=== PATIENT | female | born 1955 | race Caucasian/White ===

== ENCOUNTER 2019-06-21 10:28 | Inpatient (IN) | payer OTHER ==
[~2019-06-21] VITALS: Ht 152.4 cm; Wt 110.7 kg
[2019-06-21 10:28] VITALS: BP 175/91
[2019-06-21 11:13] LABS: HEMATOCRIT 34.8 % (37.0-47.0); HEMOGLOBIN 10.3 gm/dL (12.0-15.0); MCH 17.7 pg (26.0-34.0); MCHC 29.6 g/dL (28.0-37.0); MCV 59.8 fL (80.0-100.0); PLATELET COUNT 511 thou/uL (150-400); RBC 5.82 mil/uL (4.20-5.00); RDW 18.8 % (10.5-14.5); WBC 13.2 thou/uL (4.0-11.0)
[2019-06-21 11:22] LABS: CALCIUM 9.4 mg/dL (8.5-10.1); CREATININE 1.1 mg/dL (0.6-1.0); POTASSIUM 3.1 mmol/L (3.5-5.1)
[2019-06-21 11:28] LABS: TOTAL BILIRUBIN 0.7 mg/dL (<0.1-1.0); TOTAL PROTEIN 7.1 g/dL (6.4-8.2)
[2019-06-21 11:48] LABS: ABSOLUTE NEUTROPHILS 11.2 thou/uL (1.4-8.2); ANISOCYTOSIS 2+; OVALOCYTES OCCASIONAL
[2019-06-21 11:49] LABS: BURR CELLS OCCASIONAL; HYPOCHROMASIA 3+; MICROCYTES 3+; PLATELET ESTIMATE INCREASED; TARGET CELLS OCCASIONAL
[2019-06-21 12:08] LABS: URINE BLOOD NEGATIVE (Negative); URINE CLARITY CLEAR; URINE COLOR YELLOW; URINE GLUCOSE-RANDOM* NEGATIVE (Negative); URINE KETONES TRACE (Negative); URINE NITRITE-REFLEX NEGATIVE (Negative); URINE PROTEIN (DIPSTICK) NEGATIVE (Negative)
[2019-06-21 12:12] LABS: URINE LEUKOCYTES-REFLEX 2+ (Negative)
[2019-06-21 12:13] LABS: ICTOTEST (BILI CONFIRMATORY) Negative (Negative); URINE BILIRUBIN NEGATIVE (Negative)
[2019-06-21 12:25] LABS: CASTS None Seen /LPF (None Seen); CRYSTALS None Seen /LPF (None Seen); SQUAMOUS >10 Many /LPF (0-3); URINE RBC 0-2 Rare /HPF (0-2); URINE WBC-REFLEX 6-15 Few /HPF (0-5)
[2019-06-21 12:50] VITALS: BP 180/90
[2019-06-21 14:03] VITALS: BP 174/101
[2019-06-21 16:13] VITALS: BP 158/88
[2019-06-21 19:05] VITALS: BP 177/95
--- NOTE | 2019-06-21 19:23 | NUR ---
PATIENT ARRIVED ON UNIT AT APPROX 1323 CAME FROM ER,ACCOMPANIED BY BROTHER AND SISTER IN LAW . ADMISSION PAPERWORK COMPLETED IN COMPUTER IV FLUIDS INFUSING. PT GIVEN IV ZOFRAN FOR UPSET STOMACH. PT IS NPO. NO OPEN AREAS /SKIN. PT IS COOPERATIVE WITH CARE.
--- NOTE | 2019-06-22 02:28 | NUR ---
ASSUMED CARE OF PT @1900 PT ASSESSED AT START OF SHIFT A&OX4. PAPERWORK AND CONSENT FOR TX SIGNED. IV INTACT AND FLUIDS INFUSING. PT NPO. UP WITH SBA TO THE BATHROOM. MORPHINE GIVEN FOR PAIN IN LOWER ABD OF 8 PARTIAL RELIEF AFTERWARDS. CALL LIGHT WITHIN REACH WILL CALL CONSULTS IN THE MORNING AND CONT TO DAVID PT TILL EOS.
[2019-06-22 04:44] VITALS: BP 175/99
[2019-06-22 07:33] VITALS: BP 160/80
--- NOTE | 2019-06-22 12:10 | NUR ---
INITIAL ASSESSMENT: Pt evaluated for d/c planning needs. Reviewed chart and spoke with nurse, pt and pt's brother. Pt is alert and oriented. Pt lives in house with her parents and is caregiver. Pt uses no DME and has not had home health. 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 Pt does not have insurance. Referral made to [employer]. Encouraged pt to work with [employer] for Medicaid application and disability. Pt plans on returning home on d/c from hospital. Will remain available to assist as needed.
[2019-06-22 12:21] LABS: HEMOGLOBIN 8.8 gm/dL (12.0-15.0); OBSERVED RETIC COUNT 1.93 % (0.6-2.6)
[2019-06-22 12:24] LABS: HEMATOCRIT 29.7 % (37.0-47.0); MCH 18.2 pg (26.0-34.0); MCHC 29.7 g/dL (28.0-37.0); MCV 61.4 fL (80.0-100.0); RBC 4.85 mil/uL (4.20-5.00); RDW 18.7 % (10.5-14.5); WBC 10.4 thou/uL (4.0-11.0)
[2019-06-22 12:27] LABS: PLATELET COUNT 351 thou/uL (150-400)
[2019-06-22 12:36] LABS: % SATURATION 5 % (20-39); IRON 11 ug/dL (50-170); TIBC 240 ug/dL (250-450)
[2019-06-22 12:44] LABS: ALBUMIN 2.4 g/dL (3.4-5.0); CALCIUM 8.2 mg/dL (8.5-10.1); CREATININE 0.7 mg/dL (0.6-1.0); POTASSIUM 3.3 mmol/L (3.5-5.1); TOTAL BILIRUBIN 0.5 mg/dL (<0.1-1.0); TOTAL PROTEIN 5.9 g/dL (6.4-8.2)
[2019-06-22 13:00] LABS: ABSOLUTE NEUTROPHILS 8.3 thou/uL (1.4-8.2); PLATELET ESTIMATE NORMAL
[2019-06-22 13:01] LABS: ANISOCYTOSIS 2+; HYPOCHROMASIA 2+; MICROCYTES 2+
[2019-06-22 13:03] LABS: FERRITIN 52 ng/mL (8-252)
--- NOTE | 2019-06-22 15:09 | NUR ---
ASSUMED CARE PT SHIFT CHANGE. ASSESSMENT CHARTED. MEDS GIVEN PER AUG. PT ALERT AND ORIENTED, VSS, O2 SATS WNL ON ROOM AIR. PAIN MANAGED PER IV MEDS. GI, SURGERY CONSULT THIS SHIFT--SEE NOTES. PT TO HAVE COLONOSCOPY TOMORROW, BOWEL PREP ORDERED FOR TODAY. PT UNDERSTANDING OF PROCESS. NO BM THIS SHIFT OF NOW, BS HYPERACTIVE. DENYING OF NEEDS/CONCERNS AT THIS TIME. REPORT HANDED OFF TO NURSE VALE AT APPROX 1430.
--- NOTE | 2019-06-22 15:15 | NUR ---
REC REPORT FROM DEPARTING LOGAN STILES, NO NEEDS AT THIS TIME, IN MIDST OF BOWEL PREP. OFFERED FAMILY SNACKS. WILL CONTINUE TO MONITOR
[2019-06-22 15:45] VITALS: BP 171/74
--- NOTE | 2019-06-22 15:54 | NUR ---
HIGH B/P'S CALLED PHYSICIAN SEE ORDERS PT ASYMPTOMATIC AND IN MIDST OF BOWEL PREP
--- NOTE | 2019-06-22 16:14 | NUR ---
PHYSICIAN WAS IN THE ROOM AND LET PT KNOW IF SHE BECAME NAUSEAS SHE COULD WAIT FOUR HOURS TO RESUME
[2019-06-22 19:08] VITALS: BP 154/92
--- NOTE | 2019-06-23 02:50 | NUR ---
ASSUMED CARE OF PT @1900 PT ASSESSED AT START OF SHIFT A&OX4. ENCOURAGED PT TO START DRINKING GOLYTELY FOR BOWEL PREP. PREP STARTED AT THIS SHIFT. PT DRANK ABOUT 1500CC ENCOURAGED PT TO DRINK MORE IN ORDER FOR BOWELS TO BE CLEAR IN THE MORNING FOR COLOSCOPY. @2300 PT STATED NOT ABLE TO DRINK ANYMORE FEELS TIGHT IN THE ABD. TOLD PT TO REST AND CONT AGAIN. PT CO OF FEELING NAUSIOUS ZOFRAN GIVEN BROWN COLORED EMESIS NOTED. PT STATES SHES NOT ABLE TO KEEP DRINKING ANYMORE. EDUCATED PT ABOUT THE PROCESS AND WILL INFORM PROVIDER. PAIN MEDS GIVEN FOR ABD PAIN. FLUIDS INFUSING AND CALL LIGHT WITHIN REACH WILL CONT WITH POC TILL EOS.
[2019-06-23 03:49] VITALS: BP 151/71
[2019-06-23 08:02] VITALS: BP 183/71
--- NOTE | 2019-06-23 15:59 | NUR ---
PT CARE ASSUMED AT 0700. A&Ox4. PT WENT FOR COLONOSCOPY THIS AM. WAS NPO UNTIL THEN. NG TUBE PACED ON LOW SUCTIONING. PT CAN HAVE FLUIDS. ATTEMPTED TAP WATER ENEMA WITH NO RESULTS. PT IS ON A FULL LIQUIDS DIET. IF OVER 160 BP HYDRALAZINE CAN BE GIVEN PRN. VITALS ARE STABLE. PT IS UP AT LUIZ. DC'D LEFT AC IT WAS INFILTRATED. POSSIBLE SENIOR SWEETS TRANSFER TODAY. BED IN LOW POSITION, LOCKED, WITH BED ALARM ON. CALL LIGHT IN REACH. NS WITH POTASSIUM RUNNING AT 80ML/HR
[2019-06-23 16:05] VITALS: BP 183/71
[2019-06-23 18:55] LABS: HEMATOCRIT 29.6 % (37.0-47.0); HEMOGLOBIN 8.9 gm/dL (12.0-15.0); MCH 18.1 pg (26.0-34.0); MCV 60.4 fL (80.0-100.0); RBC 4.89 mil/uL (4.20-5.00)
[2019-06-23 19:07] VITALS: BP 156/74
[2019-06-23 19:09] LABS: CALCIUM 8.2 mg/dL (8.5-10.1); CREATININE 0.8 mg/dL (0.6-1.0); MAGNESIUM 2.1 mg/dL (1.8-2.4); PHOSPHORUS 2.6 mg/dL (2.5-4.9); POTASSIUM 4.1 mmol/L (3.5-5.1)
--- NOTE | 2019-06-24 02:16 | NUR ---
PT IS ALERT AND ORIENTED X4.PT CARE ASSUMED WITH PT IN CHAIR.PT CHOOSE TO SPEND THE NIGHT IN HIS CHAIR.PT IS UP AD LUIZ AND USED BSC.PT IS PN CONTINUOUS NG TUBE SUCTION LOW PRESSURE.PT IS NPO AND TO HAVE SURGERY ON SATURDAY.WILL CONTINUE TO MONITOR POC
[2019-06-24 08:15] VITALS: BP 150/71
[2019-06-24 17:24] VITALS: BP 181/88
--- NOTE | 2019-06-24 19:43 | NUR ---
PT UP IN BEDSIDE CHAIR WAS GIVEN PRN PAIN MED EARLIER THAT WAS EFFECTIVE NO PAIN AT THE PRESENT. HAS NG THAT IS ATTACHED TO SUCTION. HAD 400 CC ON THIS SHIFT. PT HAS HAD FAMILY VISITING ALL DAY. PT REMAINS NPO. CONT ON IV ABT'S.
[2019-06-24 20:30] VITALS: BP 157/74
[2019-06-25 04:40] VITALS: BP 153/73
[2019-06-25 05:59] LABS: HEMATOCRIT 30.8 % (37.0-47.0); HEMOGLOBIN 9.1 gm/dL (12.0-15.0); MCH 18.1 pg (26.0-34.0); MCHC 29.7 g/dL (28.0-37.0); MCV 60.9 fL (80.0-100.0); RBC 5.06 mil/uL (4.20-5.00); WBC 10.3 thou/uL (4.0-11.0)
--- NOTE | 2019-06-25 06:16 | NUR ---
ASSESSMENT COMPLETED. PT IS VERY QUIET. SLEPT IN CHAIR. ONLY ASKED FOR MORPHINE ONCE THIS SHIFT. NG IN PLACE TO LIS, GREENISH OUTPUT NOTED. AFEBRILE. WALKS WITH SBA TO THE BATHROOM.VOIDING OK. NPO.CALLS APPROPRIATELY. WILL CONTINUE WITH POC TILL EOS.
[2019-06-25 06:17] LABS: CREATININE 0.8 mg/dL (0.6-1.0); MAGNESIUM 1.8 mg/dL (1.8-2.4); POTASSIUM 3.9 mmol/L (3.5-5.1)
[2019-06-25 08:12] VITALS: BP 154/71
--- NOTE | 2019-06-25 10:05 | HC ---
[facility] [place] [address] CONSULTATION Name: GE HARRELL Room #: 444-P ADM IN M.R.#: [id number] Admission: 06/21/19 Attend Phys: Licha Brooke MD Discharge: Date of : 57 Report #: [id number] THIS REPORT FOR: //name// CC: [facility] physician/PCP Licha Brooke DATE OF SERVICE: 06/21/2019 GENERAL SURGERY CONSULTATION REPORT REFERRING PROVIDER: Licha Brooke MD REASON FOR CONSULT: Abdominal pain. HISTORY OF PRESENT ILLNESS: The patient is a 64-year-old female who presented with nausea and vomiting since Thanksgiving and inability to have a bowel movement for the past week. The patient does not see a physician and has not done so for 15 years due to not having insurance, but when her symptoms became so severe she decided to present to the Emergency Room for evaluation. Her workup showed a lactic acidosis with a significant small-bowel obstruction and a colonic mass that is quite large and is concerning for metastatic colon cancer with a subsequent small-bowel obstruction. As such, I am asked to evaluate from a surgical standpoint. PAST MEDICAL HISTORY: None. HOME MEDICATIONS: No known home medications. ALLERGIES: No known drug allergies. FAMILY HISTORY: Reviewed and noncontributory. SOCIAL HISTORY: The patient does not utilize tobacco, alcohol or illicit drugs. REVIEW OF SYSTEMS: GENERAL: The patient denies nocturnal fevers or chills. HEENT: No change in vision, change in hearing. NECK: No swelling or difficulty swallowing. HEART: No chest pain or palpitations. LUNGS: No cough or shortness of breath. ABDOMEN: Abdominal pain, nausea and inability to have a bowel movement. GENITOURINARY: No dysuria or hematuria. ENDOCRINE: No polyuria or polydipsia. HEMATOLOGIC: No history of bleeding or easy bruising. EXTREMITIES: No history of weakness or limited range of motion. NEUROLOGIC: No history of syncope or near syncopal episodes. [facility] [address] [place] [address] CONSULTATION Name: GE HARRELL Room #: 444-[facility] IN [facility].#: [id number] Admission: 06/21/19 Attend Phys: Licha Brooke MD Discharge: Date of : 57 Report #: [id number] SKIN AND INTEGUMENT: No history of abnormal lesions or moles. PSYCHIATRIC: No history of anxiety or depression. She does complain of significant weight loss that was unintentional, but no nocturnal fevers or other constitutional symptoms. PHYSICAL EXAMINATION: VITAL SIGNS: Temperature 36.8, pulse 94, respirations 20, blood pressure 180/90. GENERAL: Alert, in no acute distress. HEENT: Normocephalic, atraumatic. Pupils are equal, round, reactive to light. NECK: Supple without lymphadenopathy. Trachea midline. HEART: Regular rate and rhythm. LUNGS: Clear to auscultation bilaterally. ABDOMEN: Soft, distended. She complains of pain, but is not tender to palpation. GENITOURINARY: Normal external female genitalia. EXTREMITIES: No clubbing, cyanosis or edema. NEUROLOGIC: Cranial nerves 2-12 are grossly intact. PSYCHIATRIC: Normal mood and affect. SKIN AND INTEGUMENT: No abnormal lesions or moles. LABORATORY AND X-RAY DATA: CBC shows white blood cell count of 13.2, hemoglobin 10.3, platelets 511. Creatinine 1.1. Lactic acid 4.2. LFTs are normal. Lipase is normal. CT scan of the abdomen and pelvis shows a cecal mass measuring 3.5 cm with pericolonic metastasis and hepatic metastasis as well as a resultant small-bowel obstruction. ASSESSMENT AND PLAN: A 64-year-old female with what appears to be likely a cecal cancer that has metastasized regionally as well as to the liver and has likely entrapped a loop of small bowel nearby. This is causing a small-bowel obstruction. As such, she will have nasogastric tube placed for decompression. Continue with n.p.o. status, intravenous fluid rehydration as I suspect her lactic acidosis is secondary to volume contraction. We will have Oncology as well as Gastroenterology evaluate as she has never undergone a colonoscopy and ultimately she would necessitate some form of operative intervention be it laparoscopic versus open partial colectomy with release of small-bowel obstruction. There is a small chance she would necessitate placement of an ostomy and a Cindy's type procedure depending upon the degree of disease found intraoperatively; however, this will be reserved for intraoperative decision making after thorough consultation with the patient preoperatively. At this time, continue conservative measures as well as Gastroenterology and Oncology evaluate the patient, we will proceed operatively when appropriate. [address] [address] CONSULTATION Name: GE HARRELL Room #: 444-P ADM IN M.R.#: [id number] Admission: 06/21/19 Attend Phys: Licha Brooke MD Discharge: Date of : 57 Report #: [id number] I sincerely appreciate this consult and will follow along and leave any further recommendations in the patient's chart as appropriate. <ELECTRONICALLY SIGNED> By: Lucrecia Weir MD, FACS 06/25/19 1005 [id number] Lucrecia Weir MD, FACS /nt
[2019-06-25 10:44] VITALS: BP 154/71
--- NOTE | 2019-06-25 12:20 | NUR ---
PT CARE ASSUMED AT 0700. A&Ox4. PT IS SITTING AND SLEEPING IN RECLINER BECAUSE IT IS MORE COMFORTABLE TO HER WITH THE NG TUBE IN. NG TUBE IS ON LOW INTERMIDEATE SUCTION. I EMPTIED 600CC WHEN CHANGING OUT THE CONTAINER ON THE WALL. PT HAS RECEIVED MORPHINE FOR GENERALIZED ABDOMINAL PAIN. PT. HAS HYDRALAZINE ON BOARD IF BP OVER 160. PT. IS SCHEDULED FOR A BOWEL RESECTION TOMORROW 06/26 APPROX 10AM. PT RECEIVED 64 OZ OF BOWEL PREP WITH NO RESULTS. FLUIDS INFUSING AT 80ML/HR IV PATENT, WITH NO REDNESS OR SWELLING. Q2H TURNS. PT TURNS HERSELF. BED IS IN LOW POSITION, LOCKED WITH BED ALARM ON. CALL LIGHT IN REACH.
[2019-06-25 16:48] VITALS: BP 155/78
[2019-06-25 19:07] VITALS: BP 154/82
[2019-06-25 23:06] LABS: GLYCOHEMOGLOBIN (HGB A1C) 7.3 % (4.8-5.6)
--- NOTE | 2019-06-26 03:16 | NUR ---
ASSUMED CARE OF PT AT 1900HRS. PT AOX4 AND LETS NEEDS BE KNOWN. FALL PRECAUTION IN PLCE DUE TO MUTIPLE LINES. NG IN LEFT NARE AT 72", AND CONNECTED TO LOW INTERMITTENT SUCTION. PT DENIED NAUSEA. PT REPORTED SOME PAIN AND WAS TREATED WITH PRN PAIN MEDS. PT PLACED NPO AT OR FOR SURGERY. PT WAS ABLE TO GET COMFORTABLE AND SLEEP PART OF THE SHIFT. VSS AND NO S/S OF ACUTE SISTRESS. WILL CONTINUE TO MONITOR.
[2019-06-26 04:04] VITALS: BP 151/68
[2019-06-26 07:25] VITALS: BP 170/79
--- NOTE | 2019-06-26 07:57 | NUR ---
RD RECOMMENDATIONS: Today starts day 4 without nutrition (NPO since 06/23) and minimal-no nutrition since 06/21 admit. If continued bowel rest indicated for several more days s/p bowel surgery today, recommend initiation of TPN to help meet nutrition needs. 1) If TPN indicated by providers, recommend: D15, AA5, w/ 2.9% lipids at starting rate of 30-40 ml/hr on day 1. 2) Slowly advance to Goal Rate of 70 ml/hr over 24-48 hrs. Recommend TPN be continued for duration of at least 5-7+ days to have beneficial effect. 3) Recommend K+, Phos, Mag be WNL prior to TPN start and monitor closely in the first 3 days for any signs of refeeding. Check TRIG weekly, hold if >400.
[2019-06-26 08:18] LABS: HEMATOCRIT 32.5 % (37.0-47.0); HEMOGLOBIN 9.7 gm/dL (12.0-15.0); MCHC 29.7 g/dL (28.0-37.0); MCV 60.6 fL (80.0-100.0); PLATELET COUNT 314 thou/uL (150-400); RBC 5.35 mil/uL (4.20-5.00); RDW 19.3 % (10.5-14.5); WBC 11.5 thou/uL (4.0-11.0)
[2019-06-26 08:46] LABS: ALBUMIN 2.5 g/dL (3.4-5.0); CALCIUM 8.7 mg/dL (8.5-10.1); CREATININE 0.7 mg/dL (0.6-1.0); MAGNESIUM 2.1 mg/dL (1.8-2.4); PHOSPHORUS 3.2 mg/dL (2.5-4.9); POTASSIUM 4.1 mmol/L (3.5-5.1); TOTAL BILIRUBIN 0.5 mg/dL (<0.1-1.0); TOTAL PROTEIN 6.2 g/dL (6.4-8.2)
[2019-06-26 09:02] LABS: INR 2.3; PROTIME 23.8 Seconds (9.3-11.4)
[2019-06-26 13:40] LABS: ABSOLUTE NEUTROPHILS 9.3 thou/uL (1.4-8.2); ATYPICAL LYMPHS 1 %
[2019-06-26 13:42] LABS: ANISOCYTOSIS 2+; HYPOCHROMASIA 2+; MICROCYTES 3+
[2019-06-26 13:43] LABS: OVALOCYTES FEW
--- NOTE | 2019-06-26 18:30 | NUR ---
PT ASSESSED AT START OF SHIFT. UP IN THE RECLINER UNTIL SURGERY AND RETURNED ALERT AND IN NO ACUTE DISTRESS. ILLEOSTOMY PASSING FLATUS AND LOTS OF LIQUID STOOL BUT OSTOMY BAG LEAKING SO UNABLE TO MEASURE. NEW BAG PLACED AND WORKING WELL. PRETTY DRAINING CLEAR,YELLOW URINE. IV FLUIDS INFUSING. PT TAKING SIPS SPARINGLY PER ORDERS. MORPHINE FOR PAIN.
[2019-06-26 21:00] VITALS: BP 152/60
[2019-06-26 23:25] VITALS: BP 157/59
[2019-06-27 03:05] VITALS: BP 165/68
--- NOTE | 2019-06-27 04:15 | NUR ---
ASSUMED PT CARE AT 1900. PT COMPLAINING OF SEVERE PAIN, CALLING FOR SOMETHING EVERY 2 HOURS. MORPHINE AND FENTAYL BEING GIVEN. ATTACHED TO CONT. PULSE OX. ILEOSTOMY INTACT WITH GOOD OUTPUT. CATHETER PATENT. FLUIDS INFUSING PER ORDER. PT HAS A VERY FLAT AFFECT AND IS PALE. DR WANTED H&H DONE LAST NIGHT, LAB HAD A DIFFICULT TIME GETTING BLOOD. BEING DRAWN CURRENTLY. WILL NOTIFY SECONDARY ENGLISH TEACHER OF RESULTS SOON THEY COME THROUGH.
[2019-06-27 04:37] LABS: HEMATOCRIT 30.7 % (37.0-47.0); MCH 17.9 pg (26.0-34.0); MCHC 29.5 g/dL (28.0-37.0); MCV 60.7 fL (80.0-100.0); RBC 5.05 mil/uL (4.20-5.00); RDW 19.1 % (10.5-14.5); WBC 12.3 thou/uL (4.0-11.0)
[2019-06-27 04:57] LABS: INR 1.4; PROTIME 13.9 Seconds (9.3-11.4)
[2019-06-27 05:10] LABS: CALCIUM 8.2 mg/dL (8.5-10.1); CREATININE 0.7 mg/dL (0.6-1.0); POTASSIUM 4.7 mmol/L (3.5-5.1)
[2019-06-27 07:45] VITALS: BP 175/66
--- NOTE | 2019-06-27 14:07 | NUR ---
PT CARE ASSUMED AT 0700. A&OX4. PT IS SITTING IN RECLINER AND HAS DECLINED WALKING THE HALLWAYS. PT SPOKE TO ME ABOUT WANTING TO HAVE HOSPICE INVOLVED BUT DOES NOT WANT TO GET THINGS ORGANIZED JUST YET. PT STATES"SHE ISNT READY YET FOR THAT TO HAPPEN". PT FLUIDS INFUSING. ANTIBIOTICS GIVEN. PT STATES THAT HER PAIN IS UNCONTROLLED WITH THE MEDICATIONS THAT SHE IS GIVEN. I SPOKE TO HOSPITALIST AND HE INCREASED HER FENTANYL. PT STATES THAT THIS IS WORKING FOR HER. BOTH IVS ARE PATENT WITH NO REDNESS OR EDEMA. LEFT HAND IS SALINE LOCKED. RIGHT HAND HAS FLUIDS INFUSING. PT CAN TAKE ORAL MEDS WITH SMALL SIPS OF WATER.
[2019-06-27 16:57] VITALS: BP 171/64
[2019-06-27 18:22] VITALS: BP 171/64
[2019-06-27 19:30] VITALS: BP 159/55
--- NOTE | 2019-06-28 03:22 | NUR ---
PT CARE ASSUMED AT 1900 WITH PT IN [facility].PT HAS ILEOSTOMY AND PRETTY CATHETER.PT IS UP WITH ASSIST.PT PAIN MGT DURING SHIFT WITH MORPHINE AND NORCO.PT IS NPO WITH FLIUD SIP/MEDICATIONS.PT IS ACHS ACCUCHECKS WITH NO INSULIN.CONTINUE TO MONITOR POC
[2019-06-28 05:40] LABS: ALBUMIN 2.2 g/dL (3.4-5.0); CALCIUM 8.1 mg/dL (8.5-10.1); CREATININE 0.7 mg/dL (0.6-1.0); MAGNESIUM 1.7 mg/dL (1.8-2.4); POTASSIUM 4.1 mmol/L (3.5-5.1); TOTAL BILIRUBIN 0.5 mg/dL (<0.1-1.0)
[2019-06-28 07:58] VITALS: BP 187/60
--- NOTE | 2019-06-28 14:19 | NUR ---
ASSUMED CARE OF THE PT AT 0700. PT IS UP IN CHAIR WITH CHAIR ALARM ON. PER NOTES PRETTY IS TO BE REMOVED. PT IS TOLERATING PAIN WITH PAIN MEDICATION, SEE EMAR. PTS DIET IS NOW LIQUID AND IS ADVANCE TOLERATED. IVS ARE DRY AND INTACT. FALL PRECAUTIONS ARE IN PLACE AND CALL LIGHT IS WITHIN REACH. WILL CONTINUE TO MONITOR THE PT.
[2019-06-28 16:49] VITALS: BP 126/60
[2019-06-28 20:46] VITALS: BP 184/75
[2019-06-29 05:37] LABS: ABSOLUTE NEUTROPHILS 10.7 thou/uL (1.4-8.2); BASOPHILS 0.1 % (0.0-2.0); EOSINOPHILS 0.8 % (0.0-3.0); HEMATOCRIT 31.4 % (37.0-47.0); HEMOGLOBIN 9.3 gm/dL (12.0-15.0); LYMPHOCYTES 7.5 % (24.0-44.0); MCHC 29.7 g/dL (28.0-37.0); MCV 60.6 fL (80.0-100.0); MONOCYTES 7.9 % (1.0-8.0); PLATELET COUNT 314 thou/uL (150-400); POLYS 83.7 % (36.0-66.0); RBC 5.18 mil/uL (4.20-5.00); RDW 19.2 % (10.5-14.5); WBC 12.8 thou/uL (4.0-11.0)
[2019-06-29 05:48] LABS: CALCIUM 8.7 mg/dL (8.5-10.1); CREATININE 0.6 mg/dL (0.6-1.0); PHOSPHORUS 2.5 mg/dL (2.5-4.9); POTASSIUM 4.3 mmol/L (3.5-5.1)
--- NOTE | 2019-06-29 08:00 | NUR ---
PT SLEPT IN THE CHAIR. PAIN FAIRLY MANAGED BY ORAL AND IV PAIN MEDS. AFEBRILE. ILEOSTOMY WITH GREENISH BROWN LIQUID STOOL. VOIDING PER BSC. ENC TO DRINK WATER.CONT PULSE OX MANTAINING AT >98% ON ROOM AIR.
[2019-06-29 08:34] VITALS: BP 144/74
--- NOTE | 2019-06-29 08:59 | O ---
[facility] [place] [address] [place] [address] OPERATIVE REPORT Name: GE HARRELL Room #: 444-P ADM IN M.R.#: [id number] Admission: 06/21/19 Attend Phys: Licha Brooke MD Discharge: Date of : 57 Report #: [id number] THIS REPORT FOR: //name// CC: [facility] physician/PCP Licha Brooke DATE OF SERVICE: 06/26/2019 PREOPERATIVE DIAGNOSES: 1. Biopsy-proven right colon cancer. 2. Small-bowel obstruction. 3. Auto anticoagulation. POSTOPERATIVE DIAGNOSES: 1. Biopsy-proven right colon cancer. 2. Obstruction at the level of the ileocecal valve. 3. Carcinomatosis. 4. Innumerable liver metastases. 5. Auto anticoagulation. PROCEDURES PERFORMED: 1. Diagnostic laparoscopy. 2. Laparoscopic diverting loop ileostomy. SURGEON: Lucrecia Weir M.D. MANAGER PARKING: NICK Khalil. ANESTHESIA: General endotracheal anesthesia. ESTIMATED BLOOD LOSS: Minimal (less than 5 mL). COMPLICATIONS: None appreciated. SPECIMENS: None. INDICATIONS: The patient is a 64-year-old obese female who presented with complaints of abdominal pain, distention, nausea and vomiting and inability to have a bowel movement. The patient was found to have a small-bowel obstruction as well as a large mass in the cecum, for which she has undergone a thorough workup including a colonoscopy showing biopsy proven adenocarcinoma of the colon, a preoperative CEA level that is greater than 2500, as well as an INR of 2.3 without anticoagulation. After thorough consultation with the patient, indication was for palliation and diversion today as intraoperative findings showed florid carcinomatosis, innumerable hepatic metastases and extremely friable small bowel and colonic tissues. This was not suitable for resection [facility] [address] [place] [address] OPERATIVE REPORT Name: SHIMAGE KRISHNAN Room #: 444-P [facility] IN ..#: [id number] Admission: 06/21/19 Attend Phys: Licha Brooke MD Discharge: Date of : 56 Report #: [id number] and reanastomosis. The assistance of my nurse practitioner was imperative to the successful completion of the procedure as she performed excellent exposure and retraction throughout the entirety of the case to allow for a safe and successful completion. DESCRIPTION OF PROCEDURE: After explaining the risks, benefits and alternatives of the procedure with the patient in detail in the preoperative holding area and obtaining written consent, the patient was brought to the operating room and placed supine on the operating room table. After conducting a thorough timeout procedure verifying correct patient and procedure, the patient was given general endotracheal anesthesia. Once adequate anesthesia was obtained, her SCDs were hooked up to pneumatic compression device. She was given a preoperative dose of antibiotics in line with the SCIP protocol. The patient's abdomen was prepped and draped in standard surgical sterile fashion. 5 mL of 0.5% Marcaine with epinephrine were used to anesthetize the skin in the left upper quadrant midclavicular line in subcostal location. A #15 bladed scalpel was used to create a small skin jyotsna at this location. A 5 mm Visiport was placed over 0 degree 5 mm laparoscope and was introduced through this incision site. Once intra-abdominal placement was verified visually, the obturator for the trocar and laparoscope were both removed and the abdomen was insufflated to 15 mmHg using carbon dioxide gas. The laparoscope was changed to a 5-mm 30-degree laparoscope, which was reintroduced through this trocar. The entire abdomen was evaluated to ensure no injury upon entry. We saw markedly dilated loops of small bowel all the way distally to the tattooed mass in the cecum. I was able to place two additional 5 mm trocars in the left flank under direct vision in standard fashion. The laparoscope was removed, changed to the 5 mm port lateral to the umbilicus and I proceeded to run the small bowel from the ileocecal valve proximally. This was done showing no evidence of obstructive process throughout; however, there were innumerable hepatic metastases as well as carcinomatosis with scalloping of the peritoneum throughout. I did not perform biopsy of this as the patient's INR was 2.3 without any anticoagulants on board. This is classic for stage 4 metastatic colon cancer. The patient's tissues were assessed and were extremely friable and not amenable to resection anastomosis and as such, decision was made for palliation with diversion by creating a distal loop ileostomy. An appropriate site was selected in the right lower quadrant and a skin defect was made with #10 bladed scalpel. Electrocautery was used to carry this down through skin and subcutaneous tissues until I arrived upon the fascia, which was extremely deep secondary to the patient's severe super morbid truncal obesity. A cruciate incision was made in the fascia using electrocautery and a tonsil clamp was used to penetrate intraabdominally. This was dilated using Deavers and a [place] clamp was placed in the bed of the wound and used to grasp the distal ileum approximately 20 cm proximal to the ileocecal valve. This was then brought up through the incision site where the simple act of bring this up with the [place] clamp caused the small bowel tissues to become extremely denuded locally on the antimesenteric aspect at the site appropriate for the loop ileostomy. I therefore created the [address] [place] [address] OPERATIVE REPORT Name: GE HARRELL Room #: 444-P ADM IN M.R.#: [id number] Admission: 06/21/19 Attend Phys: Licha Brooke MD Discharge: Date of : 57 Report #: [id number] enterotomy with electrocautery and matured the loop ileostomy using 4 sutures of 3-0 Vicryl at the 12, 3, 6, and 9 o'clock positions grabbing full thickness bites of the fascia, seromuscular bites of small bowel as well as full thickness bites through the enterotomy to create a slight pala appearance in standard Kristie fashion. The resultant four quadrants were matured at the mucocutaneous juncture using short runs of 3-0 Vicryl in standard fashion as well. Digital finger intubation of both afferent and efferent loops showed them to be patent to a subfascial level. A sterile ostomy appliance was then applied. The abdomen was fully desufflated. The three 5 mm trocars in the left flank were closed using a 4-0 Monocryl in standard subcuticular fashion and Dermabond glue was applied completing the procedure. At the end of the procedure, all instruments, needle and sponge counts were correct. The patient tolerated the procedure without incident, was awakened in the operating room, transitioned to the recovery room in stable condition with no apparent complications. <ELECTRONICALLY SIGNED> By: Lucrecia Weir MD, FACS 06/29/19 [id number] Lucrecia Weir MD, FACS /nt
[2019-06-29 10:03] LABS: ANISOCYTOSIS 2+; MICROCYTES 3+
[2019-06-29 10:04] LABS: HYPOCHROMASIA 2+; OVALOCYTES 1+
--- NOTE | 2019-06-29 10:25 | NUR ---
OSTOMY CARE pouch edges loose, new pouch marta 2 piece system applied w/ adapt ring under wafer, stoma red viable, flat w/ skin surface, peristomal skin intact, liq greenish bilish effluent present, receptive to education, education on diet, supplies, s/s report, pt states she will stay here in after d'c w/ sister to recover, supplies and info at bs, will cont to follow, staff training and development manager informed RECOMMENDATIONS 2 PIECE MARTA APPLIANCE W/ ADAPT RING, CHANGE Q 3-5 DAYS
--- NOTE | 2019-06-29 10:38 | NUR ---
Nutrition update: Nutrition reassessment note completed today. See 06/29 note. Do note EMR indicating new diagnosis of DM II this admit; A1c 7.3%. BGs currently controlled 103-121 mg/dl yesterday; not currently requiring any DM meds. Recommend consulting Outpatient RD for diabetes ed. Inpatient RD will attempt to offer basic education in the next few days, once pt tolerating more than just clear liquids. Education may be limited or met with pushback given extent of pt's recent metastatic CA diagnosis. Will follow.
--- NOTE | 2019-06-29 11:21 | NUR ---
PT CARE ASSUMED AT 0700. A&Ox4. PT IS SITTING UP IN RECLINER. PT WANTS A PILLOW TO BE HELD AGAINST HER ABDOMEN FOR SUPPORT WHEN STANDING UP TO THE BED SIDE COMMODE. PT PAIN IS BEIN MANAGED WELL. PT IS ON A CLEAR LIQUID DIET AND WILL VOICE WHEN SHE WANTS SOMETHING. PT TAKES MEDS WITH SMALL SIPS OF FLAT SODA. PT IS ACHS WITH NO NEEDED INSULIN COVERAGE. WOUND CARE CHANGED ILEOSTOMY WITH 100 OUTPUT. PAIN IS WELL CONTROLLED WITH PAIN MEDICATION ON BOARD. BOTH IVS ARE PATENT, WITH NO REDNESS OR EDEMA. PENDING TRANSFER TO SENIOR SUITS WHEN A ROOM BECOMES AVAILABLE. CALL LIGHT IN REACH.
[2019-06-29 13:00] VITALS: BP 144/74
[2019-06-29 16:10] VITALS: BP 171/66
[2019-06-29 19:08] VITALS: BP 131/55
--- NOTE | 2019-06-29 21:44 | NUR ---
ASSESSMENT COMPLETED. PT IS SITTING IN THE CHAIR. MEDICATED FOR ABDOMINAL PAIN. ILEOSTOMY LOOKING GOOD, SOME BROWNISH STOOL IN IT. ROOM AVAILABLE FOR PT TO MOVE TO SNR SUITES AT ABOUT 2100HRS. PT SOMEWHAT ANXIOUS ABOUT MOVING AT THIS TIME OF THE NIGHT. INFO COMMUNICATED TO ROOF FITTER. WILL KEEP PT IN UNIT TILL TOMORROW.
[2019-06-29 23:54] LABS: URINE BILIRUBIN 1+ (Negative); URINE BLOOD NEGATIVE (Negative); URINE CLARITY CLEAR; URINE COLOR ORANGE; URINE GLUCOSE-RANDOM* NEGATIVE (Negative); URINE KETONES 2+ (Negative); URINE LEUKOCYTES NEGATIVE (Negative); URINE NITRITE POSITIVE (Negative); URINE PROTEIN (DIPSTICK) NEGATIVE (Negative); URINE SPECIFIC GRAVITY 1.025 (1.005-1.035); URINE UROBILINOGEN 0.2 E.U./dl (0.2-1.0)
[2019-06-30 00:11] LABS: BACTERIA 1-9 Few /HPF (None Seen); CRYSTALS None Seen /LPF (None Seen); HYALINE CASTS 0-3 Few /LPF (None Seen); MUCUS 0-3 Light strn/LPF (None Seen); SQUAMOUS 4-10 Moderate /LPF (0-3); URINE RBC 0-2 Rare /HPF (0-2); URINE WBC 0-5 Rare /HPF (0-5); YEAST Present (None Seen)
[2019-06-30 04:34] VITALS: BP 182/63
[2019-06-30 06:24] LABS: HEMATOCRIT 30.5 % (37.0-47.0); HEMOGLOBIN 9.1 gm/dL (12.0-15.0); MCH 17.9 pg (26.0-34.0); MCHC 29.8 g/dL (28.0-37.0); MCV 60.2 fL (80.0-100.0); RBC 5.07 mil/uL (4.20-5.00); RDW 19.4 % (10.5-14.5); WBC 12.6 thou/uL (4.0-11.0)
[2019-06-30 06:46] LABS: CALCIUM 8.3 mg/dL (8.5-10.1); CREATININE 0.6 mg/dL (0.6-1.0); POTASSIUM 4.2 mmol/L (3.5-5.1)
[2019-06-30 09:15] VITALS: BP 181/70
--- NOTE | 2019-06-30 11:48 | NUR ---
OSTOMY CARE F/U pouch intact, no leakage, dark brown liq stool present, pt alert, states she has not read ostomy material left at bs, encouraged to participate w/ care and review material, states she will live [place]/ sister [place], address: [address], [facility] [address], will order [employer] start kit to be sent to [facility] address for home use. supplies and teaching info left at bs, will cont to follow
[2019-06-30] MEDS ORDERED: LOPRESSOR25 PO (12:21)
[2019-06-30] MEDS ORDERED: NORVASC10 MG PO (12:21)
[2019-06-30] MEDS ORDERED: HYDROCODON-ACE1 EAC7 PO (12:26)
[2019-06-30] MEDS ORDERED: KEFLEX500 M1 PO (12:28)
--- NOTE | 2019-06-30 12:36 | NUR ---
S/W PT AND RIGOBERTO WHO SHE WILL GO STAY WITH HERE IN [place]. SHE PLANS TO STAY ON THE BASEMENT LEVEL WHICH WOULD BE 1 STEP TO ENTER THEN DOWN 13 STEPS WITH A RAIL TO BASEMENT LEVEL. THERE IS A TOILET ON THIS LEVEL BUT STANDARD HEIGHT AND PT SAYS THIS IS JUST TOO LOW FOR HER NOW. CHECKING TO SEE IF SANDY GAMEZ AND CHAGO WOULD BE AVAILABLE FROM THERAPY DEPT HERE. AWAITING RESPONSE. ALSO HAVE ASKED PHYSICIAN FOR SCRIPTS TODAY TO ASSIST PT WITH BEFORE DC. WILL PROVIDE PT WITH SAFETY NET PACKET AND PRESCRIPTION DISCOUNT CARD.
--- NOTE | 2019-06-30 15:08 | NUR ---
FAXED REFERRAL TO [facility] FOR BEDSIDE COMMODE AND SHAYLA GAMEZ SPOKE WITH [employer] IN INTAKS SHE RECEIVED REFERRAL AND WILL HAVE EQUIPMENT DELIVERED TODAY.
--- NOTE | 2019-06-30 15:13 | NUR ---
ASSISTED PT WITH MEDS FROM [facility] FOR $26.64 - 2 BP MEDS AND ANTIBIOTIC. PT HAS PAIN MED SCRIPT THAT SHE WILL NEED TO FILL. ARRNAGED FOR PT TO GET SANDY GAMEZ AND BSC FROM [facility]. ENCOURAGED PT TO FOLLOW-UP WITH A [facility] FOR MEDICAL CARE. PT/FAMILY AWARE OF PLANNED DC FOR TOMORROW.
--- NOTE | 2019-06-30 17:51 | NUR ---
PT A&OX4, IV INTACT IN L AND R HANDS. NS INFUSING @ 50/HR IN R HAND. AMBULATES WITH ASSIST X1 TO BSC. ILEOSTOMY INTACT. PLANS ARE FOR PT TO DC 07/01/19. CALL LIGHT W/R REACH CHAIR ALARM ON. WILL CONT POC.
[2019-06-30 18:22] VITALS: BP 135/58
[2019-06-30 19:21] VITALS: BP 126/68
[2019-07-01 00:31] VITALS: BP 126/68
--- NOTE | 2019-07-01 02:40 | NUR ---
PT A+O X4. RESTING QUIETLY IN RECLINER. IV INFUSING AND SITES ARE INTACT. IV MORPHINE AT HS FOR C/O PAIN. HAS SLEPT ON AND OFF THROUGHT THE NIGHT W/O COMPLAINT.
[2019-07-01 04:48] VITALS: BP 157/67
[2019-07-01 09:38] VITALS: BP 155/69
[2019-07-01 13:21] VITALS: BP 155/69
--- NOTE | 2019-07-01 16:08 | NUR ---
ASSUMED CARE OF THE PT AT 0700. PT BECOMES VERY FATIGUED AND SOA WHEN UP AD LUIZ TO BEDSIDE COMMODE. PTS ILEOSTOMY IS INTACT WITH PINK STOMA. LUNG SOUNDS ARE CLEAR. R AND L HAND IV ARE DRY AND INTACT. IV'S WERE REMOVED TODAY DUE TO PT BEING DISCHARGED. PAIN CONTROLLED BY PAIN MEDICATION. FALL PRECAUTIONS ARE IN PLACE, CALL LIGHT IS WITHIN REACH AND BED IS IN THE LOWEST POSITION. PT IS DISCAHRGED TO HOME AND HAD CONCERNS ABOUT FOLLOWUP CARE. PER NOTES PT IS TO FLOOWUP WITH OUTPT CLINIC. PT WANTS FOLLOWUP CARE FOR ONCOLOGY AND HAS NO INSURANCE, ADVISED PT TO CALL TOMORROW AND SPEAK WITH OUTREACH MANAGER REGARDING MORE INFORMATION. PT DISCHARGED WITH ALL BELONGINGS.
--- NOTE | 2019-07-02 15:07 | PATH ---
[facility] [address] [place] [address] PATHOLOGY RPT PROCEDURE Name: GE HARRELL Room #: 444-P [facility] M.R.#: [id number] Admission: 06/21/19 Date of : 57 Discharge: 07/01/19 Report #: [id number] Path Case #: [id number] [facility] Accession Number: [id number] . 01 Material submitted: . hepatic flexure - BX OF HEPATIC FLEXURE MASS . 01 Clinical history: . Colon mass . 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 LBQ 06/25/2019 1229 Local . 02 Comment: Co-review: Dr. Minerva Rubio . Findings are conveyed to Dr. Isidro Girard at approximately 10:15 a.m. on 06/25/19. (IUV/db; 06/25/2019) . 02 Addendum: . MICROSATELLITE INSTABILITY REPORT (MSI): . At the request of the oncologist, mismatch repair (MMR) protein immunohistochemical staining was performed. . Specimen: Formalin fixed paraffin embedded tissue Specimen site: Colon, hepatic flexure mass Specimen ID: [id number] Reason for testing: To evaluate for evidence of defective mismatch repair proteins. Method: Immunohistochemical staining for the presence or absence of protein expression of one or more of the following MMR protein markers: MLH1, MSH2, MSH6 and PMS2. Tumor type: Adenocarcinoma . Results: MLH1 -Preserved MSH2 -Preserved MSH6 -Preserved PMS2 -Preserved . Mismatch Repair Status:MMR Proficient (MMR-P) . [address] [address] PATHOLOGY RPT PROCEDURE Name: GE HARRELL Room #: 444-P [facility].#: [id number] Admission: 06/21/19 Date of : 57 Discharge: 07/01/19 Report #: [id number] Path Case #: [id number] Interpretation: . (MMR-P) All four MMR proteins are preserved within tumor cells. This suggests the presence of normal DNA mismatch repair function within the tumor and an observable defect in mismatch repair is not identified. The likelihood that this patient has an inherited germline mutation syndrome due to defective mismatch repair is reduced but not totally eliminated. If the patient has a strong personal or family history of HPNCC/Delong syndrome related cancers (colorectal, endometrial, gastric, ovarian, pancreatic, ureter/renal pelvis, biliary tract, brain, small bowel and Quiana-Merlin syndrome), consider MSI testing by PCR methodology. Suggest clinical correlation and follow up. . These test results are designed for screening purposes only and are useful tools in identifying cancer patients that are more likely to have Delong Syndrome related diagnoses. Tests should be interpreted in the context of clinical findings, family history and laboratory data. Abnormal IHC results for MMR protein expression are not considered diagnostic for Delong Syndrome. . (SKM:mml; 07/02/2019) . . Professional services performed by [email or web address] at [facility], [address], [place] [address]. Technical services performed by [employer] [facility] [employer] at [address] [place] [address], [address], [place] [address]. [facility]/07/02/2019 Addendum Electronically Signed by Sadi Holden MD, Pathologist . 02 Electronically signed: . Francine Howard MD, Pathologist NPI- [id number] . 01 Gross description: . The specimen is received in formalin, labeled "Ge Harrell, biopsy of hepatic flexure mass". Received are three segments of pale ross soft tissue ranging in size from 0.2 to 0.5 cm in maximum dimensions. The specimen is submitted entirely in cassette A1. ([facility]; 06/23/2019) QA/QA 06/23/2019 1556 Local . 02 Pathologist provided ICD-10: C18.3, D12.3 . 02 CPT . 972245, R84797, R50903 Specimen Comment: A courtesy copy of this report has been sent to [phone], [phone]- [facility] [address] [place] [address] PATHOLOGY RPT PROCEDURE Name: GE HARRELL Room #: 444-P [facility] M.R.#: [id number] Admission: 06/21/19 Date of : 57 Discharge: 07/01/19 Report #: [id number] Path Case #: [id number] Specimen Comment: [phone] Specimen Comment: Report sent to / DR COLLAZO Performed at: [address] [facility] [place] [id number] [facility] [address], [place], [place] [address] MD Yg Mistry MD Phone: [phone] Performed at: [address] [facility] [address] [id number] MD Francine Howard MD Phone: [phone]
[2019-07-03 12:24] VITALS: BP 155/69
--- NOTE | 2019-07-03 18:33 | NUR ---
RECEIVED CALL FROM PT BROTHER KEITH HARRELL [phone] WITH CONCERNS RELATED TO PT'S FOLLOW-UP AFTER DC. HE SAYS THE INSTRUCTIONS DID NOT HAVE ANY NUMBERS FOR SURGERY OR ONC. PROVIDED DR GUALLPA'S AND DR SETHI CONTCT INFO. CASE DISCUSSED WITH DR JAY AND HE WILL AGREE TO FOLLOW FOR SERVICES. S/W SHANNAN FROM [facility] AND THEY WILL DO A FEW NURSING VISITS AND PHY TX VISIT TO CHECK ON PT. S/W CLAUDIA LEONG & SHE HAS S/W PT'S CHRISTIANO & LEFT A COUP[LE OF MESSAGES FOR PT. CLAUDIA WILL FOLLOW PT IN THE INFUSION AREA IF SHE NEEDS TO BE SEEN. GIVEN INFO ON [facility]ER [facility] AND ALSO [facility]Y [facility] INFO AGAIN.
== END 2019-07-01 14:25 | disposition home or self-care (01) | DRG 330 ==
LOC: ER 10:28 → 4S 12:45
PROVIDERS: Hospitalist; Internal Medicine; Physician Assistant; Surgery; ADMIT Internal Medicine
PROC: 0D9670Z Drainage of Stomach with Drainage Device, Via Natural or Artificial Opening (ICD-10-PCS; principal; 2019-06-23)
PROC: 0D1L4Z4 Bypass Transverse Colon to Cutaneous, Percutaneous Endoscopic Approach (ICD-10-PCS; 2019-06-26)
PROC: 30233L1 Transfusion of Nonautologous Fresh Plasma into Peripheral Vein, Percutaneous Approach (ICD-10-PCS; 2019-06-26)
DX: C18.9 Malignant neoplasm of colon, unspecified (principal); N39.0 Urinary tract infection, site not specified; C78.7 Secondary malignant neoplasm of liver and intrahepatic bile duct; K56.609 Unspecified intestinal obstruction, unspecified as to partial versus complete obstruction; Z68.42 Body mass index [BMI] 45.0-49.9, adult; E87.6 Hypokalemia; K59.00 Constipation, unspecified; D50.9 Iron deficiency anemia, unspecified; I10 Essential (primary) hypertension; E66.01 Morbid (severe) obesity due to excess calories; E11.65 Type 2 diabetes mellitus with hyperglycemia; E83.42 Hypomagnesemia; Z79.01 Long term (current) use of anticoagulants; Z81.8 Family history of other mental and behavioral disorders; Z80.8 Family history of malignant neoplasm of other organs or systems; Z91.14 Patient's other noncompliance with medication regimen
CPT/HCPCS: 10100; 10195; 50010; 50101; 50249; 50386; 50555; 50558; 50962; 52265; 53307; 54022; 54118; 56462; 56524; 56525; 56526; 56530; 57092; 62110; 62900; 70005

== ENCOUNTER 2019-07-16 11:35 | Inpatient (IN) | payer OTHER ==
[~2019-07-16] VITALS: Ht 157.5 cm; Wt 109.8 kg
[2019-07-16 11:35] VITALS: BP 153/78
[~2019-07-16 11:35] MED LIST: HYDROCODON-ACE1 EAC7 PO; KEFLEX500 M1 PO; LOPRESSOR25 PO; NORVASC10 MG PO
[2019-07-16 12:14] LABS: ABSOLUTE NEUTROPHILS 8.6 thou/uL (1.4-8.2); BASOPHILS 0.6 % (0.0-2.0); HEMATOCRIT 29.4 % (37.0-47.0); LYMPHOCYTES 6.4 % (24.0-44.0); MCH 18.8 pg (26.0-34.0); MCHC 30.4 g/dL (28.0-37.0); MCV 61.8 fL (80.0-100.0); MONOCYTES 8.2 % (1.0-8.0); PLATELET COUNT 552 thou/uL (150-400); POLYS 84.8 % (36.0-66.0); RBC 4.76 mil/uL (4.20-5.00); RDW 22.6 % (10.5-14.5); WBC 10.1 thou/uL (4.0-11.0)
[2019-07-16 12:27] LABS: CALCIUM 9.7 mg/dL (8.5-10.1); CREATININE 0.9 mg/dL (0.6-1.0); POTASSIUM 5.1 mmol/L (3.5-5.1)
[2019-07-16 12:42] LABS: ALBUMIN 2.7 g/dL (3.4-5.0); DIRECT BILIRUBIN 1.1 mg/dL (<0.1-0.2); TOTAL BILIRUBIN 1.6 mg/dL (<0.1-1.0); TOTAL PROTEIN 8.4 g/dL (6.4-8.2)
[2019-07-16 13:21] LABS: ANISOCYTOSIS 2+; HYPOCHROMASIA 2+; MICROCYTES 2+; PLATELET ESTIMATE INCREASED
[2019-07-16 13:22] LABS: POLYCHROMASIA 1+; SCHISTOCYTES RARE
[2019-07-16 13:41] LABS: INR 1.2; PROTIME 12.2 Seconds (9.3-11.4)
--- NOTE | 2019-07-16 16:19 | NUR ---
PLEASE CALL BROTHER Michelle HARRELL [phone]
[2019-07-16 16:43] VITALS: BP 150/78
[2019-07-16] MEDS ORDERED: NORCO 5-325 TA1 EAC1 PO (16:54)
[2019-07-16 16:59] VITALS: BP 121/67
--- NOTE | 2019-07-16 17:07 | NUR ---
PT ARRIVED FROM ED VIA GURNEY. PT TO CHAIR WITH 1 ASSIST. PT ON RA, VSS. PT ASKING FOR PAIN MEDICATION. PAGED DR EATON
--- NOTE | 2019-07-16 17:27 | EKG ---
[address] [place] [address] ELECTROCARDIOGRAM REPORT Name: GE HARRELL Room #: 357-P AD[facility] IN M.R.#: [id number] Admission: 07/16/19 Attend Phys: Og Headley MD Discharge: Date of : 57 Report #: [id number] THIS REPORT FOR: //name// [facility] ED Test Date: 2019-07-16 Test Time: 11:47:27 Pat Name: GE HARRELL Department: Room: 357 Gender: F [employer] Rn: JOSIE : 1955 Requested By: Carmen Chan Order Number: [id number] MD: Mateo Mary Measurements Intervals [place] Rate: 155 P: 37 OR: 118 QRS: 103 QRSD: 74 T: -6 QT: 249 QTc: 400 Interpretive Statements Sinus tachycardia Right axis deviation Low voltage, precordial leads Borderline T abnormalities, diffuse leads Baseline wander in lead(s) I,III,aVL No previous ECG available for comparison Electronically Signed On 07-16-2019 17:27:18 WALLPAPERER HELPER by Mateo Mary [email or web address] <ELECTRONICALLY SIGNED> By: Mateo Mary MD 07/16/19 1727 1147 1147 Mateo Mary MD /EPI
[2019-07-16 19:45] VITALS: BP 126/58
[2019-07-17 03:12] VITALS: BP 127/59
[2019-07-17 04:30] LABS: ALBUMIN 2.1 g/dL (3.4-5.0); CALCIUM 8.2 mg/dL (8.5-10.1); CREATININE 0.8 mg/dL (0.6-1.0); MAGNESIUM 1.5 mg/dL (1.8-2.4); POTASSIUM 4.5 mmol/L (3.5-5.1); TOTAL PROTEIN 6.9 g/dL (6.4-8.2)
[2019-07-17 04:39] LABS: HEMATOCRIT 23.8 % (37.0-47.0); HEMOGLOBIN 7.4 gm/dL (12.0-15.0); MCH 19.1 pg (26.0-34.0); MCV 61.7 fL (80.0-100.0); RBC 3.85 mil/uL (4.20-5.00); RDW 22.5 % (10.5-14.5); WBC 8.5 thou/uL (4.0-11.0)
--- NOTE | 2019-07-17 06:54 | NUR ---
ASSUMED CARE AT 1900. PT SOB WITH ACTIVITY. REPORTED MODERATE PAIN ACROSS HER LOWER BACK BUT DID NOT ASK FOR ANY PAIN MEDS UNTIL ABOUT 0300. PT'S HEART RATE WAS TACHY ALL NIGHT, GRADUALLY INCREASING INTO 130'S, WITH JUMP TO 140-160 WITH ACTIVITY. GAVE ONE-TIME DOSE OF IVP LOPRESSOR, WHICH HELPED SLIGHTLY, BUT CONTINUED TO BE ST IN 120'S MUCH OF THE NIGHT. UP FREQUENTLY TO URINATE SMALL AMOUNTS OVERNIGHT; STAYED IN CHAIR TO SLEEP. NO OTHER CONCERNS, WILL CONTINUE TO MONITOR.
[2019-07-17 07:24] VITALS: BP 129/67
--- NOTE | 2019-07-17 09:07 | NUR ---
ASSESSMENT-PT HAS BEEN STAYING HERE IN [place] WITH HER BROTHER AND [id number] SINCE HER DC EARLIER THIS MONTH. EDWARDO HAS SEEN HER FOR A VISIT AT HOME. PT HAS BEEN USING WALKER AND BSC AND ASSISTT FROM CHRISTIANO. CHRISTIANO HAS BEEN ASSISTING HER WITH OSTOMY POUCH CHANGES. PT HAS OSTOMY SUPPLIES PEOVIDED BY ROUNDER HAND CLAUDIA TONY. FOLLOWING TO ASSIST WITH DC PLANNING. HUMAN NICOLE SAW ON HER LAST ADMISSION & MEDICAID APPLICATION IS IN PROCESS. PT WILL NEED PRESCRIPTION ASSSIT AGAIN AND HH SERVICES RESUMED. FOLLOWING.
--- NOTE | 2019-07-17 10:28 | NUR ---
OSTOMY CARE; pouch intact, no leakage, dark liq brown effluent noted, pt states sister nate changed appliance yesterday, states she needs assist w/ ostomy care, states home health still seeing pt, alert and cooperative, denies issues w/ peristomal breakdown, reviewed care, especially diet due to ileostomy, no hard roughage foods, etc and adeq po intake, also getting ostomy supplies, states she still has supplies at brother and sister nate home, supplies left in room, will cont to follow
[2019-07-17 11:22] VITALS: BP 138/61
--- NOTE | 2019-07-17 13:56 | EKG ---
[address] [place] [address] ELECTROCARDIOGRAM REPORT Name: GE HARRELL Room #: 357-P ADM IN M.R.#: [id number] Admission: 07/16/19 Attend Phys: Og Headley MD Discharge: Date of : 57 Report #: [id number] THIS REPORT FOR: //name// [facility] Test Date: 2019-07-17 Test Time: 07:36:04 Pat Name: GE HARRELL Department: Room: 357 P Gender: F Mesmerist: Fran RIDDLE : 1955 Requested By: Og Headley Order Number: [id number] MD: Mateo Mary Measurements Intervals [place] Rate: 130 P: 45 MS: 126 QRS: -3 QRSD: 77 T: 14 QT: 288 QTc: 424 Interpretive Statements Sinus tachycardia Low voltage, precordial leads Anteroseptal infarct, old Compared to ECG 07/16/2019 11:47:27 Myocardial infarct finding now present Right-axis deviation no longer present T-wave abnormality no longer present Electronically Signed On 07-17-2019 13:55:32 AEROSPACE PHYSIOLOGICAL TECHNICIAN by Mateo Mary [email or web address] <ELECTRONICALLY SIGNED> By: Mateo Mary MD 07/17/19 1355 0736 0736 Mateo Mary MD /EPI
[2019-07-17 16:30] VITALS: BP 141/62
--- NOTE | 2019-07-17 18:17 | NUR ---
PATIENT RESTED IN CHAIR MOST OF THE DAY. DID ASK FOR PAIN MEDICATION AND IT WAS EFFECTIVE. STATES SHE HAS GENERALIZED ABDOMINAL PAIN. WILL CONT WITH PLAN OF CARE.
[2019-07-17 19:30] VITALS: BP 133/60
[2019-07-18 05:30] VITALS: BP 151/73
--- NOTE | 2019-07-18 06:32 | NUR ---
ASSUMED CARE AT 1900. PT ANXIOUS ABOUT PLAN OF CARE AND WHETHER OR NOT ANY MORE TESTING OR PROCEDURES WILL BE DONE. SPOKE WITH DR. MCCONNELL WHO STATED NO SURGICAL INTERVENTION WAS LIKELY TO BE NECESSARY, THAT ONCOLOGY SHOULD BE CONSULTED TO MANAGE END-STAGE CANCER, AND THAT IT WAS OKAY TO RESUME HER DIET. PT TOLERATED [place] SODA, MILK, AND POPCICLES. HAS HAD LOW GRADE TEMP OVERNIGHT. NO OTHER CONCERNS, WILL CONTINUE TO MONITOR.
[2019-07-18 07:16] VITALS: BP 130/66
[2019-07-18] MEDS ORDERED: PEPCID20 MG PO (13:35)
[2019-07-18] MEDS ORDERED: LEVAQUIN 500 M500 M3 PO (13:35)
[2019-07-18] MEDS ORDERED: TYLENOL325 M1 PO (13:35)
[2019-07-18 15:07] VITALS: BP 149/74
[2019-07-18 16:45] LABS: URINE BILIRUBIN 2+ (Negative); URINE BLOOD TRACE (Negative); URINE CLARITY CLEAR; URINE COLOR ORANGE; URINE GLUCOSE-RANDOM* TRACE (Negative); URINE KETONES NEGATIVE (Negative); URINE LEUKOCYTES-REFLEX TRACE (Negative); URINE NITRITE-REFLEX NEGATIVE (Negative); URINE PROTEIN (DIPSTICK) 1+ (Negative); URINE SPECIFIC GRAVITY >= 1.030 (1.005-1.035); URINE UROBILINOGEN 0.2 E.U./dl (0.2-1.0)
[2019-07-18 16:47] LABS: ICTOTEST (BILI CONFIRMATORY) Positive (Negative)
[2019-07-18 16:54] LABS: SQUAMOUS 0-3 Few /LPF (0-3)
[2019-07-18 16:55] LABS: BACTERIA-REFLEX 1-9 Few /HPF (None Seen); CASTS None Seen /LPF (None Seen); CRYSTALS None Seen /LPF (None Seen); URINE RBC 0-2 Rare /HPF (0-2); URINE WBC-REFLEX 6-15 Few /HPF (0-5); YEAST-REFLEX Present (None Seen)
--- NOTE | 2019-07-18 17:58 | NUR ---
PT WAS NOTIFIED THIS AM THAT SHE WILL BE DISCHARGED HOME. LATER IN THE AFTERNOON NURSE WAS PROCESSING PAPER, PTS BROTHER CALLED AND STATED THAT HE AND HIS FAMILY ARE OUT OF TOWN AND WILL NOT BE ABLE TO TAKE PATIENT HOME TODAY. STATES THEY WILL BE BACK TOMORROW AND WILL PREFER TO LEAVE THEN. /CASE MANAGMENT AND HS NOTIFIED.
[2019-07-18 19:08] VITALS: BP 147/61
--- NOTE | 2019-07-18 23:33 | NUR ---
PT RESTING IN CHAIR WATCHING TV. ASKED FOR PRN FOR ABD PAIN AT CHANGE OF SHIFT. PT AWAKENED FOR MEDICATIONS, PT INITIALLY DISORIENTED ASKING REPETITIVE QUESTIONS. PT REPORTING TOLERATING LIQUIDS. COLOSTOMY INTACT. NO C/O N/V. PT CALLS FOR ASSISTANCE FOR TRANSFERS. STATED HER FAMILY WAS OUT OF TOWN TAKING HER SISTER IN [place] HOME.
[2019-07-19 04:11] VITALS: BP 128/60
--- NOTE | 2019-07-19 06:24 | NUR ---
PT REFUSED AM WEIGHT.
[2019-07-19 07:02] VITALS: BP 135/71
[2019-07-19] MEDS ORDERED: DIFLUCAN100 MG PO (10:39)
[2019-07-19] MEDS ORDERED: HYDROCODON-ACE1 EAC7 PO (11:15)
[2019-07-19 13:05] VITALS: BP 135/71
--- NOTE | 2019-07-19 14:25 | NUR ---
1405 pt discharge instruction and medication information given to patient.all pt belongings with pt. took pt down by wheelchair. sister in law picked pt up.
== END 2019-07-19 14:13 | disposition home or self-care (01) | DRG 690 ==
LOC: ER 11:35 → EROBS 15:43 → 3W 15:43
PROVIDERS: Nurse Practitioner; ADMIT Internal Medicine
DX: N39.0 Urinary tract infection, site not specified (principal); C18.9 Malignant neoplasm of colon, unspecified; Z68.41 Body mass index [BMI] 40.0-44.9, adult; E86.0 Dehydration; I10 Essential (primary) hypertension; R00.0 Tachycardia, unspecified; R11.2 Nausea with vomiting, unspecified; Z96.89 Presence of other specified functional implants; R74.0 Nonspecific elevation of levels of transaminase and lactic acid dehydrogenase [LDH]; D12.6 Benign neoplasm of colon, unspecified; E11.9 Type 2 diabetes mellitus without complications; E66.01 Morbid (severe) obesity due to excess calories; Z93.2 Ileostomy status; Z79.891 Long term (current) use of opiate analgesic; Z79.899 Other long term (current) drug therapy
CPT/HCPCS: 10879